=== PATIENT | female | born 1980 | race Two or more races ===

== ENCOUNTER 2016-11-08 10:39 | Emergency (ER) | payer SELFPAY ==
[2016-11-08 10:50] VITALS: BMI 28.1
[2016-11-08 10:53] VITALS: BP 119/70; PULSE 86; RESP 15; TEMP 98.1; O2SAT 100
== END 2016-11-08 11:18 | disposition left against medical advice (07) ==
LOC: ED 10:39
DX: Z02.89 Encounter for other administrative examinations (principal); K08.89 Other specified disorders of teeth and supporting structures

== ENCOUNTER 2017-03-07 10:00 | Emergency (ER) | payer OTHER ==
[2017-03-07 10:00] VITALS: BMI 28.1
[2017-03-07 10:26] VITALS: TEMP 98.6
[2017-03-07] MEDS ORDERED: Oxycodone/Acetaminophen 5/325 mg Tab PO STA (10:51)
[2017-03-07 11:36] VITALS: BP 125/78; PULSE 69; RESP 18; O2SAT 97
--- NOTE | 2017-03-07 11:49 | ED PDOC ---
Arrival/HPI - General Chief Complaint: Dental Pain Time Seen by Provider: 03/07/17 10:48 - History of Present Illness Narrative History of Present Illness (Text): 03/07/17 17:23 Patient c/o right upper toothache for 2 days. Patient sts she has an appointment with Dentist tomorrow. Patient sts she took Motrin, but pain was sos evere that she couldn't sleep. Quality: Aching Severity Level: 10, Severe Past Medical History - Provider Review Nursing Documentation Reviewed: Yes - Infectious Disease Hx of Infectious Diseases: None - Psychiatric Hx Substance Use: No - Surgical History Hx Section: Yes Family/Social History - Physician Review Nursing Documentation Reviewed: Yes Family/Social History: No Known Family HX Smoking Status: Light Smoker < 10 Cigarettes Daily Hx Alcohol Use: No Hx Substance Use: No Allergies/Home Meds Allergies/Adverse Reactions: Allergies No Known Allergies Allergy (Verified 03/07/17 10:25) Review of Systems - Physician Review All systems were reviewed & negative as marked: Yes - Review of Systems ENT: Other (toothache') Physical Exam Vital Signs Reviewed: Yes Vital Signs Temp Pulse Resp BP Pulse Ox 03/07/17 11:34 69 18 125/78 97 03/07/17 10:23 98.6 F 73 16 127/86 100 Temperature: Afebrile Blood Pressure: Normal Pulse: Regular Respiratory Rate: Normal Appearance: Positive for: Well-Appearing, Non-Toxic, Uncomfortable Pain Distress: Mild Mental Status: Positive for: Alert and Oriented X 3 - Systems Exam Head: Present: Atraumatic, Normocephalic Pupils: Present: PERRL Mouth: Present: Moist Mucous Membranes, Other (right upper wisdom tooth with dental caries, no gum swelling, no face swelling) Pharnyx: Present: Normal. No: ERYTHEMA Neck: Present: Normal Range of Motion, Other (supple) Neurological: Present: CN II-XII Intact, Speech Normal Psychiatric: Present: Alert, Oriented x 3 Medical Decision Making ED Course and Treatment: 03/07/17 17:27 Patient was treated with PenVK and Percocet and was d/c home with dentist f/u. - Medication Orders Current Medication Orders: Discontinued Medications Oxycodone/Acetaminophen (Percocet 5/325 Mg Tab) 1 tab PO STAT STA Stop: 03/07/17 10:52 Last Admin: 03/07/17 11:31 Dose: 1 tab Penicillin V Potassium (Penicillin Vk Tab) 500 mg PO STAT STA PRN Reason: Protocol Stop: 03/07/17 10:52 Last Admin: 03/07/17 11:31 Dose: 500 mg Disposition/Present on Arrival - Present on Arrival Any Indicators Present on Arrival: No History of DVT/PE: No History of Uncontrolled Diabetes: No Urinary Catheter: No History of Decub. Ulcer: No History Surgical Site Infection Following: None - Disposition Have Diagnosis and Disposition been Completed?: Yes Diagnosis: Toothache Disposition: HOME/ ROUTINE Disposition Time: 11:45 Condition: STABLE Discharge Instructions (ExitCare): Toothache (ED) Additional Instructions: Follow up with Dentist within 1-2 days. Return to ED if feel worse. Prescriptions: Penicillin VK [Pen-Vee K] 500 mg PO Q6 #28 tab oxyCODONE/Acetaminophen [Percocet 5/325 mg Tab] 1 tab PO QID PRN #20 tab PRN Reason: Pain Referrals: PCP,NO [Primary Care Provider] - Follow up with primary Forms: [employer] (Taiwanese)
== END 2017-03-07 12:10 | disposition home or self-care (01) ==
LOC: ED 10:00
DX: K08.89 Other specified disorders of teeth and supporting structures (principal)

== ENCOUNTER 2017-03-07 23:45 | Emergency (ER) | payer OTHER ==
[2017-03-08 00:03] VITALS: BMI 25.8
[2017-03-08 00:24] VITALS: BP 152/48; PULSE 69; RESP 18; TEMP 98.8; O2SAT 100
--- NOTE | 2017-03-08 00:26 | ED PDOC ---
Arrival/HPI - General Chief Complaint: Dental Pain Time Seen by Provider: 03/08/17 00:20 Historian: Patient, Spouse - History of Present Illness Narrative History of Present Illness (Text): 03/08/17 00:24 36yr old female presents today with worsening toothache over the past 2 days. pt was seen in er earlier today and given rx for percocet and penicillin VK. pt returns to the ER with worsening toothache despite medications. no fever/ chills. no trismus or drooling. pt c/o pain in right ear. no other complaints. Time/Duration: Other (2 days) Symptom Onset: Gradual Symptom Course: Worsening Quality: Aching, Throbbing Severity Level: 10, Severe Past Medical History - Provider Review Nursing Documentation Reviewed: Yes - Travel History Have you recently traveled outside US w/in the past 3 mons?: No - Infectious Disease Hx of Infectious Diseases: None - Tetanus Immunization Tetanus Immunization: Unknown - Cardiac Hx Cardiac Disorders: No - Pulmonary Hx Respiratory Disorders: No - Neurological Hx Neurological Disorder: No - HEENT Hx HEENT Disorder: No - Renal Hx Renal Disorder: No - Endocrine/Metabolic Hx Endocrine Disorders: No - Hematological/Oncological Hx Blood Disorders: No - Integumentary Hx Dermatological Disorder: No - Musculoskeletal/Rheumatological Hx Musculoskeletal Disorders: No - Gastrointestinal Hx Gastrointestinal Disorders: No - Genitourinary/Gynecological Hx Genitourinary Disorders: No - Psychiatric Hx Psychophysiologic Disorder: No Hx Substance Use: No - Surgical History Hx Section: Yes Family/Social History - Physician Review Nursing Documentation Reviewed: Yes Family/Social History: Unknown Family HX Smoking Status: Light Smoker < 10 Cigarettes Daily Hx Alcohol Use: No Hx Substance Use: No Allergies/Home Meds Allergies/Adverse Reactions: Allergies No Known Allergies Allergy (Verified 03/07/17 10:25) Review of Systems - Review of Systems Constitutional: absent: Fatigue, Fevers ENT: Other (toothache). absent: Sore Throat, Sinus Congestion Respiratory: absent: SOB, Cough Cardiovascular: absent: Chest Pain, Palpitations Gastrointestinal: absent: Abdominal Pain, Nausea, Vomiting Musculoskeletal: absent: Arthralgias, Back Pain, Neck Pain Skin: absent: Rash, Pruritis Neurological: absent: Headache, Dizziness Physical Exam Vital Signs Reviewed: Yes Temperature: Afebrile Blood Pressure: Normal Pulse: Regular Respiratory Rate: Normal Appearance: Positive for: Well-Appearing, Non-Toxic, Comfortable Pain Distress: None Mental Status: Positive for: Alert and Oriented X 3 - Systems Exam Head: Present: Atraumatic Conjunctiva: Present: Normal Ears: Present: Normal, NORMAL TM. No: Erythema Mouth: Present: Moist Mucous Membranes, Normal Lips, Normal Tounge. No: Drooling, Trismus, Normal Teeth ( + right upper molar tenderness; no erythema; no edema, no abscess; ) Pharnyx: Present: Normal. No: ERYTHEMA, EXUDATE Neck: Present: Normal Range of Motion, Trachea Midline. No: Lymphadenopathy Respiratory/Chest: Present: Clear to Auscultation, Good Air Exchange. No: Respiratory Distress, Accessory Muscle Use Cardiovascular: Present: Regular Rate and Rhythm, Normal S1, S2. No: Murmurs Neurological: Present: GCS=15, Speech Normal Skin: Present: Warm, Dry, Normal Color. No: Rashes Psychiatric: Present: Alert, Oriented x 3 Medical Decision Making ED Course and Treatment: 03/08/17 00:27 Patient is nontoxic well-appearing in no distress with stable vital signs No trismus or drooling, moist mucous membranes pt has already taken Pen VK and percocet; will given toradol IM. I advised that patient MUST follow-up with the dentist within the next 2 days. I advised immediate return is symptoms worsen persist or if new concerning symptoms develop Patient verbalizes understanding of discharge instructions and need for immediate followup. Impression: Toothache Motrin every 6 hours as needed for pain Continue antibiotics as prescribed Continue Percocet as prescribed Follow-up with the dentist within the next 2 days Follow-up with a primary care physician within the next 2 days Return immediately if symptoms worsen persist or if new concerning symptoms develop [facility] [address] [place] [address] [address] [place], [place] [phone] - Medication Orders Current Medication Orders: Ketorolac Tromethamine (Toradol) 60 mg IM STAT STA Stop: 03/08/17 00:22 Disposition/Present on Arrival - Present on Arrival Any Indicators Present on Arrival: No History of DVT/PE: No History of Uncontrolled Diabetes: No Urinary Catheter: No History of Decub. Ulcer: No History Surgical Site Infection Following: None - Disposition Have Diagnosis and Disposition been Completed?: Yes Diagnosis: Toothache Disposition: HOME/ ROUTINE Disposition Time: 00:22 Patient Plan: Discharge Condition: GOOD Discharge Instructions (ExitCare): Toothache (ED) Additional Instructions: Motrin every 6 hours as needed for pain Continue antibiotics as prescribed Continue Percocet as prescribed Follow-up with the dentist within the next 2 days Follow-up with a primary care physician within the next 2 days Return immediately if symptoms worsen persist or if new concerning symptoms develop [facility] [address] [place] [address] [address] [place], [place] [phone] Prescriptions: Ibuprofen [Motrin] 600 mg PO Q6H PRN #20 tab PRN Reason: pain/fever reduction Referrals: Tima Pierre DMD [Non-Staff] - Follow up with primary Say Nichols DO [Staff Provider] - Follow up with primary Forms: [employer] (Djiboutian), WORK NOTE
== END 2017-03-08 00:59 | disposition home or self-care (01) ==
LOC: ED 23:45
DX: K08.89 Other specified disorders of teeth and supporting structures (principal)
CPT/HCPCS: 96372; 99282; J1885

== ENCOUNTER 2017-08-04 11:03 | Emergency (ER) | payer OTHER ==
[2017-08-04 11:11] VITALS: BMI 32.4
[2017-08-04 11:15] VITALS: BP 120/87; PULSE 79; RESP 18; TEMP 98.3; O2SAT 100
--- NOTE | 2017-08-04 12:00 | ED PDOC ---
Arrival/HPI - General Chief Complaint: Dental Pain Time Seen by Provider: 08/04/17 11:38 Historian: Patient - History of Present Illness Narrative History of Present Illness (Text): 08/04/17 12:02 37 yo F presents c/o R upper toothache with mild swelling to the R side of the face x few days, has been taking motrin 600 mg po with no relief from the pain. Denies any fever, chills, ear pain, URI symptoms, sore throat, neck pain, dysphagia, rash, headache. Has no additional complaints. PMD none Past Medical History - Provider Review Nursing Documentation Reviewed: Yes - Infectious Disease Hx of Infectious Diseases: None - Tetanus Immunization Tetanus Immunization: Unknown - Cardiac Hx Cardiac Disorders: No - Pulmonary Hx Respiratory Disorders: No - Neurological Hx Neurological Disorder: No - HEENT Hx HEENT Disorder: No - Renal Hx Renal Disorder: No - Endocrine/Metabolic Hx Endocrine Disorders: No - Hematological/Oncological Hx Blood Disorders: No - Integumentary Hx Dermatological Disorder: No - Musculoskeletal/Rheumatological Hx Musculoskeletal Disorders: No - Gastrointestinal Hx Gastrointestinal Disorders: No - Genitourinary/Gynecological Hx Genitourinary Disorders: No - Psychiatric Hx Psychophysiologic Disorder: No Hx Substance Use: No - Surgical History Hx Section: Yes - Anesthesia Hx Anesthesia: No Family/Social History - Physician Review Nursing Documentation Reviewed: Yes Family/Social History: Unknown Family HX Smoking Status: Light Smoker < 10 Cigarettes Daily Hx Alcohol Use: No Hx Substance Use: No Allergies/Home Meds Allergies/Adverse Reactions: Allergies No Known Allergies Allergy (Verified 03/07/17 10:25) Review of Systems - Review of Systems Constitutional: absent: Fatigue, Weight Change, Fevers ENT: Other (toothache, facial swelling). absent: Sore Throat, Rhinorrhea Respiratory: absent: SOB, Cough, Sputum Skin: absent: Rash, Pruritis, Skin Lesions Neurological: absent: Headache, Dizziness Physical Exam Vital Signs Reviewed: Yes Vital Signs Temp Pulse Resp BP Pulse Ox 08/04/17 11:14 98.3 F 79 18 120/87 100 Temperature: Afebrile Blood Pressure: Normal Pulse: Regular Respiratory Rate: Normal Appearance: Positive for: Well-Appearing, Non-Toxic, Comfortable Pain Distress: Mild Mental Status: Positive for: Alert and Oriented X 3 - Systems Exam Head: Present: Atraumatic, Normocephalic, Swelling (+mild swelling noted to the R cheek) Pupils: Present: PERRL Extroacular Muscles: Present: EOMI Conjunctiva: Present: Normal Ears: Present: Normal, NORMAL TM Mouth: Present: Moist Mucous Membranes, Other (+mild edema to the R upper gum line) Pharnyx: Present: Normal. No: ERYTHEMA, EXUDATE Neck: Present: Normal Range of Motion. No: Meningeal Signs, Lymphadenopathy Neurological: Present: GCS=15, CN II-XII Intact, Motor Func Grossly Intact, Normal Sensory Function Skin: Present: Warm, Dry, Normal Color. No: Rashes Medical Decision Making ED Course and Treatment: 08/04/17 11:59 37 yo F presents c/o R upper toothache with mild swelling to the R side of the face. Plan : - Amoxicillin 500 mg PO - Tramadol 50 mg PO Patient instructed to follow up with the dentist in 1-2 days without fail. Advised to take medication as prescribed. Return to the emergency room at any time for any new or worsening symptoms. Patient states she fully agrees with and understands discharge instructions. States that she agrees with the plan and disposition. Verbalized and repeated discharge instructions and plan. I have given the patient opportunity to ask any additional questions. - Medication Orders Current Medication Orders: Discontinued Medications Amoxicillin (Amoxil 500 Mg Cap) 500 mg PO STAT STA PRN Reason: Protocol Stop: 08/04/17 11:57 Last Admin: 08/04/17 12:14 Dose: 500 mg Tramadol HCl (Ultram) 50 mg PO STAT STA Stop: 08/04/17 11:56 Last Admin: 08/04/17 12:14 Dose: 50 mg [facility] Pain Assessment Document 08/04/17 12:14 EWO (Rec: 08/04/17 12:14 [id number] Pain Reassessment Is this a pain reassessment? No Sleep Is patient sleeping during reassessment? No Presence of Pain Presence of Pain Yes Pain Scale Used Pain Scale Used Numeric - PA / CARD SORTER / Resident Statement /DO has reviewed & agrees with the documentation as recorded. Disposition/Present on Arrival - Present on Arrival Any Indicators Present on Arrival: No History of DVT/PE: No History of Uncontrolled Diabetes: No Urinary Catheter: No History of Decub. Ulcer: No History Surgical Site Infection Following: None - Disposition Have Diagnosis and Disposition been Completed?: No Diagnosis: Toothache Disposition: HOME/ ROUTINE Disposition Time: 11:56 Patient Plan: Discharge Condition: STABLE Discharge Instructions (ExitCare): Dental Abscess (ED), Toothache (ED) Print Language: INDONESIAN Additional Instructions: Thank you for letting us take care of you today. You were treated for toothache , consider dental abscess. The emergency medical care you received today was directed at your acute symptoms. If you were prescribed any medication, please fill it and take as directed. It may take several days for your symptoms to resolve. Return to the Emergency Department if your symptoms worsen, do not improve, or if you have any other problems. Please the dentist in 2 days for re-evaluation and follow up. Bring any paperwork you were given at discharge with you along with any medications you are taking to your follow up visit. Our treatment cannot replace ongoing medical care by a primary care provider (PCP) outside of the emergency department. Thank you for allowing the [facility] team to be part of your care today. Prescriptions: Amoxicillin 500 mg PO TID #30 tablet traMADol [Ultram] 50 mg PO TID PRN #12 tab PRN Reason: Pain, Moderate (4-7) Referrals: PCP,NO [Primary Care Provider] - Follow up with primary [facility] [Outside] - Follow up with primary Forms: [employer] (Slovak), WORK NOTE
== END 2017-08-04 12:30 | disposition home or self-care (01) ==
LOC: ED 11:03
DX: K08.89 Other specified disorders of teeth and supporting structures (principal); F17.210 Nicotine dependence, cigarettes, uncomplicated

== ENCOUNTER 2018-05-22 15:18 | Emergency (ER) | payer OTHER ==
[2018-05-22 15:24] VITALS: BMI 24.8
[2018-05-22 15:27] VITALS: RESP 18; TEMP 98.8; O2SAT 100
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
[2018-05-22 17:32] VITALS: BP 115/75; PULSE 75
== END 2018-05-22 17:30 | disposition home or self-care (01) ==
LOC: ED 15:18
DX: F07.81 Postconcussional syndrome (principal)
CPT/HCPCS: 70450; 96372; 99285; J1885